=== PATIENT | male | born 1960 | race Caucasian/White ===

== ENCOUNTER 2016-06-03 16:03 | Inpatient (IN) | payer MEDICAID ==
[~2016-06-03] VITALS: Ht 175.3 cm; Wt 98.2 kg
[~2016-06-03 16:03] MED LIST: BECL8.7A6 IH; DIVA500T52 PO; DSS100 PO; IPRA4AER IH; LORA10TA7 PO; MOME17N NASAL; MULT1CAP32 PO; PHEN100C9 PO; PRAV40 PO; TAMS0.4C32 PO; TRAZ-144 PO
[2016-06-03] MEDS ORDERED: DIVA500T35 PO (16:31)
[2016-06-03] MEDS ORDERED: OLAN10TA3 PO (16:33)
[2016-06-03] MEDS ORDERED: FURO20 PO (16:37)
[2016-06-03] MEDS ORDERED: TOPI25 PO (16:39)
[2016-06-03] MEDS ORDERED: ZOLPIDEM TARTRATE 10 MG TABLET PO PRN (17:00)
[2016-06-03 17:01] VITALS: BP 109/82
[2016-06-03] MEDS ORDERED: MOME13HF2 IH (17:15)
[2016-06-03] MEDS ORDERED: DiphenhydrAMINE HCL 50 MG/ML VIAL IM ONE (18:00)
[2016-06-03] MEDS ORDERED: LORazepam 2 MG/ML VIAL IM ONE (18:00)
[2016-06-03] MEDS ORDERED: HALOPERIDOL LACTATE 5 MG/ML VIAL IM ONE (18:00)
[2016-06-03 18:02] VITALS: BP 141/99
[2016-06-03 18:35] VITALS: BP 119/75
[2016-06-03] MEDS: DIVALPROEX SODIUM 500 MG DR TABLET PO SCH (18:50)
[2016-06-03] MEDS ORDERED: PNEUMOCOCCAL VACCINE POLYVALENT 0.5 ML VIAL [PPSV23] IM ONE (19:30)
[2016-06-03] MEDS: TraZODone HCL 50 MG TABLET PO SCH (20:43)
[2016-06-03] MEDS: TAMSULOSIN HCL 0.4 MG CAPSULE PO SCH (20:43)
[2016-06-03] MEDS: MOMETASONE FUROATE 50 MCG/SPRAY 17 GM NASAL SPRAY NASAL SCH (20:43)
[2016-06-03] MEDS: OLANZapine 10 MG TABLET PO SCH (20:43)
[2016-06-04] MEDS: LORazepam 2 MG TABLET PO PRN ×2 (06:02→15:12)
[2016-06-04] MEDS: HALOPERIDOL 5 MG TABLET PO PRN ×2 (06:02→15:12)
[2016-06-04 06:10] VITALS: BP 145/90
[2016-06-04 08:32] LABS: BASOPHILS % (AUTO) 0.3 % (0.0-2.0); EOSINOPHILS % (AUTO) 1.8 % (1.0-6.0); HEMATOCRIT 42.8 % (41-53); HEMOGLOBIN 14.1 g/dL (13.5-17.5); LYMPHOCYTES # (AUTO) 1.3 K/uL (1.0-4.8); LYMPHOCYTES % (AUTO) 18.8 % (22.0-44.0); MEAN CORPUSCULAR HEMOGLOBIN 30.7 pg (26.0-34.0); MEAN CORPUSCULAR VOLUME 93 fL (80-100); MONOCYTES # (AUTO) 0.5 K/uL (0.1-1.0); MONOCYTES % (AUTO) 7.4 % (2.0-9.0); NEUTROPHILS % (AUTO) 71.7 % (40.0-70.0); PLATELET COUNT (AUTO) 219 K/uL (150-450); RED BLOOD CELL COUNT(AUTO) 4.61 MIL/uL (4.50-5.90); RED CELL DISTRIBUTION WIDTH 14.5 % (11.5-14.5)
[2016-06-04 08:39] VITALS: BP 119/79
[2016-06-04 08:57] LABS: ALANINE AMINOTRANSFERASE 24 U/L (12-78); ALBUMIN 3.6 g/dL (3.4-5.0); ANION GAP 9 mmol/L (8-16); ASPARTATE AMINOTRANSFERASE 8 U/L (15-37); BILIRUBIN,TOTAL 0.3 mg/dL (0.1-1.0); CALCIUM, TOTAL 8.5 mg/dL (8.8-10.5); CARBON DIOXIDE 27 mmol/L (22-29); CHLORIDE 109 mmol/L (98-107); CHOL/HDL RATIO 3.3 (4.2-7.3); CREATININE 0.68 mg/dL (0.60-1.30); GLOMERULAR FILTR. RATE CALC > 60 mL/min (>60); POTASSIUM 4.1 mmol/L (3.5-5.1); SODIUM SERUM 145 mmol/L (136-145); THYROID STIMULATING HORMONE 1.77 uIU/mL (0.36-3.74); TOTAL PROTEIN, SERUM 6.8 g/dL (6.4-8.2); UREA NITROGEN, BLOOD 12 mg/dL (7-18); VALPROIC ACID 5 mcg/mL (50-100)
[2016-06-04] MEDS ORDERED: BECLOMETHASONE DIPR 40 MCG/PUFF 8.7 GM INHALER IH SCH (09:00)
[2016-06-04] MEDS: ALBUTEROL SULFATE HFA 90 MCG/PUFF 8 GM INHALER IH SCH ×2 (09:01→17:25)
[2016-06-04] MEDS: LORATADINE 10 MG TABLET PO SCH (09:02)
[2016-06-04] MEDS: FUROSEMIDE 20 MG TABLET PO SCH (09:02)
[2016-06-04] MEDS: PRAVASTATIN SODIUM 40 MG TABLET PO SCH (09:02)
[2016-06-04] MEDS: DIVALPROEX SODIUM 500 MG DR TABLET PO SCH ×2 (09:02→12:36)
[2016-06-04] MEDS: MULTIVITAMINS WITH MINERALS, THERAPEUTIC TABLET PO SCH (09:02)
[2016-06-04] MEDS: DOCUSATE SODIUM 100 MG CAPSULE PO SCH (09:02)
[2016-06-04] MEDS: PHENYTOIN SODIUM 100 MG ER CAPSULE PO SCH ×3 (09:02→17:25)
[2016-06-04] MEDS ORDERED: DULERA IH SCH ×2 (14:15→21:30)
[2016-06-04] MEDS ORDERED: HALOPERIDOL LACTATE 5 MG/ML VIAL ONE (14:39)
[2016-06-04] MEDS ORDERED: LORazepam 2 MG/ML VIAL ONE (14:39)
[2016-06-04] MEDS ORDERED: DiphenhydrAMINE HCL 50 MG/ML VIAL ONE (14:39)
[2016-06-04 16:49] VITALS: BP 108/68
[2016-06-04] MEDS: TOPIRAMATE 25 MG TABLET PO SCH (17:25)
[2016-06-04] MEDS: DULERA IH SCH (20:05)
[2016-06-04] MEDS: TraZODone HCL 50 MG TABLET PO SCH (20:05)
[2016-06-04] MEDS: DIVALPROEX SODIUM 500 MG ER TABLET PO SCH (20:06)
[2016-06-04] MEDS: OLANZapine 10 MG TABLET PO SCH (20:06)
[2016-06-04] MEDS: TAMSULOSIN HCL 0.4 MG CAPSULE PO SCH (20:07)
[2016-06-04] MEDS: MOMETASONE FUROATE 50 MCG/SPRAY 17 GM NASAL SPRAY NASAL SCH (21:00)
[2016-06-05] MEDS: FUROSEMIDE 20 MG TABLET PO SCH (08:05)
[2016-06-05] MEDS: PHENYTOIN SODIUM 100 MG ER CAPSULE PO SCH ×3 (08:05→16:19)
[2016-06-05] MEDS: DIVALPROEX SODIUM 500 MG DR TABLET PO SCH ×2 (08:05→16:19)
[2016-06-05] MEDS: TOPIRAMATE 25 MG TABLET PO SCH ×2 (08:05→16:19)
[2016-06-05] MEDS: LORATADINE 10 MG TABLET PO SCH (08:05)
[2016-06-05] MEDS: PRAVASTATIN SODIUM 40 MG TABLET PO SCH (08:05)
[2016-06-05] MEDS: MULTIVITAMINS WITH MINERALS, THERAPEUTIC TABLET PO SCH (08:05)
[2016-06-05] MEDS: DOCUSATE SODIUM 100 MG CAPSULE PO SCH (08:05)
[2016-06-05] MEDS: DULERA IH SCH ×2 (08:06→20:23)
[2016-06-05] MEDS: ALBUTEROL SULFATE HFA 90 MCG/PUFF 8 GM INHALER IH SCH ×2 (08:10→16:20)
[2016-06-05 08:28] VITALS: BP 111/58
[2016-06-05] MEDS: HALOPERIDOL 5 MG TABLET PO PRN (09:54)
[2016-06-05] MEDS: LORazepam 2 MG TABLET PO PRN (09:54)
[2016-06-05 18:18] VITALS: BP 118/24
[2016-06-05] MEDS: MOMETASONE FUROATE 50 MCG/SPRAY 17 GM NASAL SPRAY NASAL SCH (20:23)
[2016-06-05] MEDS: TAMSULOSIN HCL 0.4 MG CAPSULE PO SCH (20:23)
[2016-06-05] MEDS: TraZODone HCL 50 MG TABLET PO SCH (20:23)
[2016-06-05] MEDS: OLANZapine 10 MG TABLET PO SCH (20:23)
[2016-06-05] MEDS: DIVALPROEX SODIUM 500 MG ER TABLET PO SCH (20:23)
[2016-06-06 08:03] VITALS: BP 103/71
[2016-06-06] MEDS: ALBUTEROL SULFATE HFA 90 MCG/PUFF 8 GM INHALER IH SCH (08:29)
[2016-06-06] MEDS: PRAVASTATIN SODIUM 40 MG TABLET PO SCH (08:29)
[2016-06-06] MEDS: FUROSEMIDE 20 MG TABLET PO SCH (08:29)
[2016-06-06] MEDS: DIVALPROEX SODIUM 500 MG DR TABLET PO SCH (08:29)
[2016-06-06] MEDS: DULERA IH SCH (08:29)
[2016-06-06] MEDS: LORATADINE 10 MG TABLET PO SCH (08:30)
[2016-06-06] MEDS: PHENYTOIN SODIUM 100 MG ER CAPSULE PO SCH ×2 (08:30→12:04)
[2016-06-06] MEDS: MULTIVITAMINS WITH MINERALS, THERAPEUTIC TABLET PO SCH (08:30)
[2016-06-06] MEDS: DOCUSATE SODIUM 100 MG CAPSULE PO SCH (08:30)
[2016-06-06] MEDS: HALOPERIDOL 5 MG TABLET PO PRN (08:31)
[2016-06-06] MEDS: TOPIRAMATE 25 MG TABLET PO SCH (08:31)
[2016-06-06] MEDS: LORazepam 2 MG TABLET PO PRN (08:31)
[2016-06-06] MEDS ORDERED: ALBU8HFA IH (11:11)
== END 2016-06-06 15:15 | disposition home or self-care (01) | DRG 750 ==
LOC: EDSTATUS 16:51 → B3A 17:38 → 3EC 06-04 10:37
DX: F25.0 Schizoaffective disorder, bipolar type (principal); J44.9 Chronic obstructive pulmonary disease, unspecified; I10 Essential (primary) hypertension; G40.909 Epilepsy, unspecified, not intractable, without status epilepticus; E78.5 Hyperlipidemia, unspecified; G47.00 Insomnia, unspecified; J31.0 Chronic rhinitis; M19.90 Unspecified osteoarthritis, unspecified site; N40.0 Benign prostatic hyperplasia without lower urinary tract symptoms; R45.850 Homicidal ideations; Z91.5 Personal history of self-harm; Z98.2 Presence of cerebrospinal fluid drainage device; Z88.0 Allergy status to penicillin; Z88.6 Allergy status to analgesic agent; Z79.51 Long term (current) use of inhaled steroids; Z79.899 Other long term (current) drug therapy; Z98.890 Other specified postprocedural states; Z28.21 Immunization not carried out because of patient refusal; Z87.891 Personal history of nicotine dependence
CPT/HCPCS: 84436; 84439; 84443; J1200; J1630; J2060; J3535

== ENCOUNTER 2016-08-10 14:28 | Inpatient (IN) | payer MEDICAID, OTHER ==
[~2016-08-10] VITALS: Ht 162.6 cm; Wt 85.8 kg
[~2016-08-10 14:28] MED LIST changes: +ALBU8HFA IH; +DIPH25 PO; +DIVA500T35 PO; +FURO20 PO; +MOME13HF2 IH; +OLAN10TA3 PO; +SERT50TA12 PO; +TOPI25 PO
[2016-08-10 14:48] LABS: BASOPHILS # (AUTO) 0.04 K/uL (0.00-0.20); BASOPHILS % (AUTO) 0.4 % (0.0-2.0); EOSINOPHILS # (AUTO) 0.22 K/uL (0.00-0.70); EOSINOPHILS % (AUTO) 2.14 % (1.0-6.0); HEMOGLOBIN 14.6 g/dL (13.5-17.5); LYMPHOCYTES # (AUTO) 1.6 K/uL (1.0-4.8); LYMPHOCYTES % (AUTO) 15.4 % (22.0-44.0); MEAN CORPUSCULAR HGB CONC 33.9 G/dL (31.0-37.0); MEAN CORPUSCULAR VOLUME 94 fL (80-100); MONOCYTES # (AUTO) 0.9 K/uL (0.1-1.0); MONOCYTES % (AUTO) 8.5 % (2.0-9.0); NEUTROPHILS # (AUTO) 7.6 K/uL (1.8-7.7); NEUTROPHILS % (AUTO) 73.6 % (40.0-70.0); PLATELET COUNT (AUTO) 319 K/uL (150-450); RED BLOOD CELL COUNT(AUTO) 4.57 MIL/uL (4.50-5.90); RED CELL DISTRIBUTION WIDTH 13.4 % (11.5-14.5); WHITE BLOOD COUNT (AUTO) 10.4 K/uL (4.5-11.0)
[2016-08-10 14:53] LABS: ANION GAP 11 mmol/L (8-16); CALCIUM, TOTAL 8.7 mg/dL (8.8-10.5); CARBON DIOXIDE 26 mmol/L (22-29); CHLORIDE 103 mmol/L (98-107); CREATININE 0.73 mg/dL (0.60-1.30); GLOMERULAR FILTR. RATE CALC > 60 mL/min (>60); POTASSIUM 3.4 mmol/L (3.5-5.1); SODIUM SERUM 140 mmol/L (136-145); UREA NITROGEN, BLOOD 7 mg/dL (7-18)
[2016-08-10 14:59] LABS: ALANINE AMINOTRANSFERASE 22 U/L (12-78); ALBUMIN 3.9 g/dL (3.4-5.0); ASPARTATE AMINOTRANSFERASE 7 U/L (15-37); BILIRUBIN,TOTAL 0.2 mg/dL (0.1-1.0); TOTAL PROTEIN, SERUM 7.5 g/dL (6.4-8.2); VALPROIC ACID 45 mcg/mL (50-100)
[2016-08-10] MEDS ORDERED: LORazepam 2 MG TABLET PO ONE (15:00)
[2016-08-10] MEDS ORDERED: HALOPERIDOL 5 MG TABLET PO PRN (15:30)
[2016-08-10] MEDS ORDERED: PHENYTOIN SODIUM 100 MG ER CAPSULE PO ONE (15:45)
[2016-08-10] MEDS ORDERED: POTASSIUM CHLORIDE 20 MEQ ER TABLET PO ONE (15:45)
[2016-08-10] MEDS ORDERED: DIVALPROEX SODIUM 500 MG ER TABLET PO ONE (15:45)
[2016-08-10 17:34] VITALS: BP 109/69
[2016-08-10] MEDS ORDERED: PNEUMOCOCCAL VACCINE POLYVALENT 0.5 ML VIAL [PPSV23] IM ONE (18:15)
[2016-08-10] MEDS: OLANZapine 7.5 MG TABLET PO SCH (20:40)
[2016-08-10] MEDS: TraZODone HCL 100 MG TABLET PO SCH (20:40)
[2016-08-10] MEDS: TAMSULOSIN HCL 0.4 MG CAPSULE PO SCH (20:40)
[2016-08-11 08:20] VITALS: BP 104/77
[2016-08-11] MEDS: FUROSEMIDE 20 MG TABLET PO SCH (08:22)
[2016-08-11] MEDS: PHENYTOIN SODIUM 100 MG ER CAPSULE PO SCH ×3 (08:22→17:26)
[2016-08-11] MEDS: DIVALPROEX SODIUM 500 MG DR TABLET PO SCH ×2 (08:22→17:26)
[2016-08-11] MEDS: MULTIVITAMINS, THERAPEUTIC TABLET PO SCH (08:22)
[2016-08-11] MEDS: PRAVASTATIN SODIUM 40 MG TABLET PO SCH (08:22)
[2016-08-11] MEDS: TOPIRAMATE 25 MG TABLET PO SCH ×2 (08:24→17:26)
[2016-08-11] MEDS: ALBUTEROL SULFATE HFA 90 MCG/PUFF 8 GM INHALER IH PRN ×2 (12:06→20:22)
[2016-08-11] MEDS: TAMSULOSIN HCL 0.4 MG CAPSULE PO SCH (20:16)
[2016-08-11] MEDS: OLANZapine 7.5 MG TABLET PO SCH (20:16)
[2016-08-11] MEDS: TraZODone HCL 100 MG TABLET PO SCH (20:16)
[2016-08-12 07:09] LABS: BASOPHILS % (AUTO) 0.3 % (0.0-2.0); EOSINOPHILS % (AUTO) 2.7 % (1.0-6.0); HEMATOCRIT 41.3 % (41-53); HEMOGLOBIN 14.3 g/dL (13.5-17.5); LYMPHOCYTES # (AUTO) 1.4 K/uL (1.0-4.8); LYMPHOCYTES % (AUTO) 25.1 % (22.0-44.0); MEAN CORPUSCULAR HEMOGLOBIN 32.4 pg (26.0-34.0); MEAN CORPUSCULAR HGB CONC 34.7 G/dL (31.0-37.0); MEAN CORPUSCULAR VOLUME 93 fL (80-100); MONOCYTES # (AUTO) 0.6 K/uL (0.1-1.0); MONOCYTES % (AUTO) 10.1 % (2.0-9.0); NEUTROPHILS # (AUTO) 3.4 K/uL (1.8-7.7); NEUTROPHILS % (AUTO) 61.8 % (40.0-70.0); PLATELET COUNT (AUTO) 291 K/uL (150-450); RED BLOOD CELL COUNT(AUTO) 4.42 MIL/uL (4.50-5.90); RED CELL DISTRIBUTION WIDTH 13.7 % (11.5-14.5); WHITE BLOOD COUNT (AUTO) 5.6 K/uL (4.5-11.0)
[2016-08-12 07:35] LABS: ALANINE AMINOTRANSFERASE 19 U/L (12-78); ALBUMIN 3.2 g/dL (3.4-5.0); ANION GAP 9 mmol/L (8-16); ASPARTATE AMINOTRANSFERASE 7 U/L (15-37); BILIRUBIN,TOTAL 0.1 mg/dL (0.1-1.0); CALCIUM, TOTAL 8.4 mg/dL (8.8-10.5); CARBON DIOXIDE 26 mmol/L (22-29); CHLORIDE 107 mmol/L (98-107); CREATININE 0.63 mg/dL (0.60-1.30); GLOMERULAR FILTR. RATE CALC > 60 mL/min (>60); POTASSIUM 3.9 mmol/L (3.5-5.1); SODIUM SERUM 142 mmol/L (136-145); THYROID STIMULATING HORMONE 0.73 uIU/mL (0.36-3.74); TOTAL PROTEIN, SERUM 6.5 g/dL (6.4-8.2); UREA NITROGEN, BLOOD 11 mg/dL (7-18); VALPROIC ACID 36 mcg/mL (50-100)
[2016-08-12 08:00] VITALS: BP 133/71
[2016-08-12] MEDS: PHENYTOIN SODIUM 100 MG ER CAPSULE PO SCH ×3 (09:04→18:15)
[2016-08-12] MEDS: FUROSEMIDE 20 MG TABLET PO SCH (09:04)
[2016-08-12] MEDS: DIVALPROEX SODIUM 500 MG DR TABLET PO SCH ×2 (09:04→18:15)
[2016-08-12] MEDS: MULTIVITAMINS, THERAPEUTIC TABLET PO SCH (09:04)
[2016-08-12] MEDS: PRAVASTATIN SODIUM 40 MG TABLET PO SCH (09:05)
[2016-08-12] MEDS: TOPIRAMATE 25 MG TABLET PO SCH ×2 (09:06→18:15)
[2016-08-12] MEDS: ALBUTEROL SULFATE HFA 90 MCG/PUFF 8 GM INHALER IH PRN (09:09)
[2016-08-12] MEDS: FLUTICASONE/VILANTEROL 100-25 MCG/INH INHALER [14] IH SCH (14:34)
[2016-08-12] MEDS: OLANZapine 7.5 MG TABLET PO SCH (21:11)
[2016-08-12] MEDS: TraZODone HCL 100 MG TABLET PO SCH (21:11)
[2016-08-12] MEDS: TAMSULOSIN HCL 0.4 MG CAPSULE PO SCH (21:11)
[2016-08-12] MEDS: ZOLPIDEM TARTRATE 10 MG TABLET PO PRN (22:28)
[2016-08-13 08:00] VITALS: BP 103/62
[2016-08-13] MEDS: PHENYTOIN SODIUM 100 MG ER CAPSULE PO SCH ×3 (09:12→16:49)
[2016-08-13] MEDS: MULTIVITAMINS, THERAPEUTIC TABLET PO SCH (09:12)
[2016-08-13] MEDS: FUROSEMIDE 20 MG TABLET PO SCH (09:12)
[2016-08-13] MEDS: DIVALPROEX SODIUM 500 MG DR TABLET PO SCH ×2 (09:12→16:49)
[2016-08-13] MEDS: PRAVASTATIN SODIUM 40 MG TABLET PO SCH (09:12)
[2016-08-13] MEDS: TOPIRAMATE 25 MG TABLET PO SCH ×2 (09:12→16:49)
[2016-08-13] MEDS: FLUTICASONE/VILANTEROL 100-25 MCG/INH INHALER [14] IH SCH (09:12)
[2016-08-13] MEDS: TraZODone HCL 100 MG TABLET PO SCH (20:21)
[2016-08-13] MEDS: OLANZapine 7.5 MG TABLET PO SCH (20:21)
[2016-08-13] MEDS: TAMSULOSIN HCL 0.4 MG CAPSULE PO SCH (20:22)
[2016-08-13] MEDS: ZOLPIDEM TARTRATE 10 MG TABLET PO PRN (20:58)
[2016-08-14 08:28] VITALS: BP 128/95
[2016-08-14] MEDS: FUROSEMIDE 20 MG TABLET PO SCH (08:34)
[2016-08-14] MEDS: PHENYTOIN SODIUM 100 MG ER CAPSULE PO SCH ×3 (08:34→18:01)
[2016-08-14] MEDS: MULTIVITAMINS, THERAPEUTIC TABLET PO SCH (08:34)
[2016-08-14] MEDS: TOPIRAMATE 25 MG TABLET PO SCH ×2 (08:35→18:01)
[2016-08-14] MEDS: DIVALPROEX SODIUM 500 MG DR TABLET PO SCH ×2 (08:35→18:00)
[2016-08-14] MEDS: PRAVASTATIN SODIUM 40 MG TABLET PO SCH (08:36)
[2016-08-14 17:48] VITALS: BP 113/71
[2016-08-14] MEDS: OLANZapine 7.5 MG TABLET PO SCH (22:09)
[2016-08-14] MEDS: TAMSULOSIN HCL 0.4 MG CAPSULE PO SCH (22:09)
[2016-08-14] MEDS: TraZODone HCL 100 MG TABLET PO SCH (22:09)
[2016-08-15 08:00] VITALS: BP 124/85
[2016-08-15] MEDS: DIVALPROEX SODIUM 500 MG DR TABLET PO SCH ×2 (08:02→16:38)
[2016-08-15] MEDS: FUROSEMIDE 20 MG TABLET PO SCH (08:03)
[2016-08-15] MEDS: PRAVASTATIN SODIUM 40 MG TABLET PO SCH (08:03)
[2016-08-15] MEDS: PHENYTOIN SODIUM 100 MG ER CAPSULE PO SCH ×3 (08:03→16:38)
[2016-08-15] MEDS: TOPIRAMATE 25 MG TABLET PO SCH ×2 (08:03→16:38)
[2016-08-15] MEDS: MULTIVITAMINS, THERAPEUTIC TABLET PO SCH (08:03)
[2016-08-15] MEDS: FLUTICASONE/VILANTEROL 100-25 MCG/INH INHALER [14] IH SCH (08:07)
[2016-08-15] MEDS: ALBUTEROL SULFATE HFA 90 MCG/PUFF 8 GM INHALER IH PRN (08:08)
[2016-08-15] MEDS: LORazepam 2 MG TABLET PO PRN (14:55)
[2016-08-15 16:41] VITALS: BP 129/88
[2016-08-15] MEDS: TraZODone HCL 100 MG TABLET PO SCH (21:54)
[2016-08-15] MEDS: OLANZapine 7.5 MG TABLET PO SCH (21:54)
[2016-08-15] MEDS: TAMSULOSIN HCL 0.4 MG CAPSULE PO SCH (21:54)
[2016-08-16 08:01] VITALS: BP 104/56
[2016-08-16] MEDS: FLUTICASONE/VILANTEROL 100-25 MCG/INH INHALER [14] IH SCH (09:00)
[2016-08-16] MEDS: DIVALPROEX SODIUM 500 MG DR TABLET PO SCH ×2 (09:14→17:54)
[2016-08-16] MEDS: MULTIVITAMINS, THERAPEUTIC TABLET PO SCH (09:15)
[2016-08-16] MEDS: PRAVASTATIN SODIUM 40 MG TABLET PO SCH (09:15)
[2016-08-16] MEDS: PHENYTOIN SODIUM 100 MG ER CAPSULE PO SCH ×3 (09:15→17:54)
[2016-08-16] MEDS: FUROSEMIDE 20 MG TABLET PO SCH (09:15)
[2016-08-16] MEDS: TOPIRAMATE 25 MG TABLET PO SCH ×2 (09:15→17:54)
[2016-08-16] MEDS: ALBUTEROL SULFATE HFA 90 MCG/PUFF 8 GM INHALER IH PRN (10:10)
[2016-08-16] MEDS: LORazepam 2 MG TABLET PO PRN (18:35)
[2016-08-16 19:11] VITALS: BP 114/68
[2016-08-16] MEDS ORDERED: IBUPROFEN 600 MG TABLET PO PRN (19:45)
[2016-08-16] MEDS ORDERED: ACETAMINOPHEN 325 MG TABLET PO PRN (19:45)
[2016-08-16] MEDS ORDERED: BENZOCAINE/MENTHOL LOZENGE MM PRN (19:45)
[2016-08-16] MEDS ORDERED: PETROLATUM,WHITE 71 GM JELLY TP PRN (19:45)
[2016-08-16] MEDS ORDERED: ONDANSETRON HCL 4 MG TABLET PO PRN (19:45)
[2016-08-16] MEDS ORDERED: MAGNESIUM HYDROXIDE SUSPENSION 30 ML UDCUP PO PRN (19:45)
[2016-08-16] MEDS ORDERED: LOPERAMIDE HCL 2 MG CAPSULE PO PRN (19:45)
[2016-08-16] MEDS ORDERED: BACITRACIN 28.4 GM OINTMENT TP PRN (19:45)
[2016-08-16] MEDS ORDERED: MAG HYDROX/AL HYDROX/SIMETH ES 30 ML SUSPENSION UDCUP PO PRN (19:45)
[2016-08-16] MEDS ORDERED: CloNIDine HCL 0.1 MG TABLET PO PRN (19:45)
[2016-08-16] MEDS ORDERED: BENZOCAINE/MENTHOL LOZENGE [8 LOZENGES/PACKET] MM PRN (19:54)
[2016-08-16] MEDS: DICLOFENAC SODIUM 1% 100 GM GEL [2GM] TP SCH (20:49)
[2016-08-16] MEDS: TraZODone HCL 100 MG TABLET PO SCH (20:49)
[2016-08-16] MEDS: TAMSULOSIN HCL 0.4 MG CAPSULE PO SCH (20:50)
[2016-08-16] MEDS: OLANZapine 7.5 MG TABLET PO SCH (20:50)
[2016-08-17 08:12] VITALS: BP 120/67
[2016-08-17] MEDS: FLUTICASONE/VILANTEROL 100-25 MCG/INH INHALER [14] IH SCH ×2 (09:00→10:18)
[2016-08-17] MEDS: FUROSEMIDE 20 MG TABLET PO SCH (10:17)
[2016-08-17] MEDS: ASPIRIN 81 MG EC TABLET PO SCH (10:17)
[2016-08-17] MEDS: DIVALPROEX SODIUM 500 MG DR TABLET PO SCH ×2 (10:17→15:52)
[2016-08-17] MEDS: MULTIVITAMINS, THERAPEUTIC TABLET PO SCH (10:17)
[2016-08-17] MEDS: PRAVASTATIN SODIUM 40 MG TABLET PO SCH (10:17)
[2016-08-17] MEDS: DOCUSATE SODIUM 100 MG CAPSULE PO SCH (10:17)
[2016-08-17] MEDS: OMEPRAZOLE 20 MG CAPSULE PO SCH (10:18)
[2016-08-17] MEDS: PHENYTOIN SODIUM 100 MG ER CAPSULE PO SCH ×3 (10:24→15:53)
[2016-08-17] MEDS: TOPIRAMATE 25 MG TABLET PO SCH ×2 (10:25→15:52)
[2016-08-17] MEDS: DICLOFENAC SODIUM 1% 100 GM GEL [2GM] TP SCH ×2 (10:27→16:04)
[2016-08-17] MEDS: TraZODone HCL 100 MG TABLET PO SCH (20:13)
[2016-08-17] MEDS: OLANZapine 7.5 MG TABLET PO SCH (20:13)
[2016-08-17] MEDS: TAMSULOSIN HCL 0.4 MG CAPSULE PO SCH (20:13)
[2016-08-17 21:45] VITALS: BP 135/79
[2016-08-17] MEDS: ZOLPIDEM TARTRATE 10 MG TABLET PO PRN (21:57)
[2016-08-18] MEDS: PRAVASTATIN SODIUM 40 MG TABLET PO SCH (08:27)
[2016-08-18] MEDS: DICLOFENAC SODIUM 1% 100 GM GEL [2GM] TP SCH ×2 (08:27→16:33)
[2016-08-18] MEDS: FLUTICASONE/VILANTEROL 100-25 MCG/INH INHALER [14] IH SCH (08:27)
[2016-08-18 08:30] VITALS: BP 117/63
[2016-08-18] MEDS: FUROSEMIDE 20 MG TABLET PO SCH (08:30)
[2016-08-18] MEDS: ASPIRIN 81 MG EC TABLET PO SCH (08:30)
[2016-08-18] MEDS: MULTIVITAMINS, THERAPEUTIC TABLET PO SCH (08:30)
[2016-08-18] MEDS: TOPIRAMATE 25 MG TABLET PO SCH ×2 (08:30→16:35)
[2016-08-18] MEDS: OMEPRAZOLE 20 MG CAPSULE PO SCH (08:30)
[2016-08-18] MEDS: DIVALPROEX SODIUM 500 MG DR TABLET PO SCH ×2 (08:30→16:35)
[2016-08-18] MEDS: DOCUSATE SODIUM 100 MG CAPSULE PO SCH (08:30)
[2016-08-18] MEDS: PHENYTOIN SODIUM 100 MG ER CAPSULE PO SCH ×3 (08:31→16:35)
[2016-08-18] MEDS ORDERED: TRAZ-147 PO (14:31)
[2016-08-18] MEDS ORDERED: ASPI-1093 PO (14:32)
[2016-08-18] MEDS ORDERED: DSS100 PO (14:34)
[2016-08-18] MEDS ORDERED: DICL2100G TP (14:34)
[2016-08-18] MEDS ORDERED: FLUT1AER IH (14:36)
[2016-08-18] MEDS ORDERED: OMEP20 PO (14:38)
[2016-08-18 16:00] VITALS: BP 122/74
== END 2016-08-18 19:00 | disposition home or self-care (01) | DRG 750 ==
LOC: EMS 14:32 → 3EC 16:15
PROVIDERS: ADMIT Psychiatry & Neurology Psychiatry; ATTEND Psychiatry & Neurology Psychiatry
DX: F25.0 Schizoaffective disorder, bipolar type (principal); I67.1 Cerebral aneurysm, nonruptured; F15.20 Other stimulant dependence, uncomplicated; J44.9 Chronic obstructive pulmonary disease, unspecified; R45.850 Homicidal ideations; G40.909 Epilepsy, unspecified, not intractable, without status epilepticus; I10 Essential (primary) hypertension; E78.5 Hyperlipidemia, unspecified; E87.6 Hypokalemia; F17.200 Nicotine dependence, unspecified, uncomplicated; F41.9 Anxiety disorder, unspecified; G47.00 Insomnia, unspecified; G89.29 Other chronic pain; M19.90 Unspecified osteoarthritis, unspecified site; N40.0 Benign prostatic hyperplasia without lower urinary tract symptoms; Z98.2 Presence of cerebrospinal fluid drainage device; B07.0 Plantar wart; R26.9 Unspecified abnormalities of gait and mobility; R45.84 Anhedonia; R45.87 Impulsiveness; Z88.0 Allergy status to penicillin; Z88.8 Allergy status to other drugs, medicaments and biological substances; Z84.89 Family history of other specified conditions; Z63.9 Problem related to primary support group, unspecified; Z28.21 Immunization not carried out because of patient refusal; F19.10 Other psychoactive substance abuse, uncomplicated; Z71.51 Drug abuse counseling and surveillance of drug abuser; M25.512 Pain in left shoulder; Z56.0 Unemployment, unspecified
CPT/HCPCS: 82306; 84436; 84439; 84443; 93005; 99285; G0480; J3535

== ENCOUNTER 2018-02-04 22:57 | Emergency (ER) | payer MEDICAID, OTHER ==
[~2018-02-04] VITALS: Ht 175.3 cm; Wt 70.5 kg
[~2018-02-04 22:57] MED LIST changes: -ALBU8HFA IH; +ASPI-1182 PO; -BECL8.7A6 IH; +DICL2100G TP; -DIPH25 PO; +DIVA-78 PO; -DIVA500T35 PO; -DIVA500T52 PO; +FLUT1AER IH; -IPRA4AER IH; -LORA10TA7 PO; -MOME13HF2 IH; -MOME17N NASAL; +OMEP20 PO; -PRAV40 PO; +PRAV40TA4 PO; -SERT50TA12 PO; -TRAZ-144 PO; +TRAZ-220 PO
[2018-02-04] MEDS ORDERED: SIME80 PO (23:15)
[2018-02-04] MEDS ORDERED: DOCU250C91 PO (23:15)
[2018-02-04] MEDS ORDERED: PHEN100C23 PO (23:15)
[2018-02-04] MEDS ORDERED: SERT100T12 PO (23:15)
[2018-02-04] MEDS ORDERED: PRAV40TA4 PO (23:15)
[2018-02-04] MEDS ORDERED: OLAN10TA3 PO (23:15)
[2018-02-04] MEDS ORDERED: MOME13HF2 IH (23:15)
[2018-02-04] MEDS ORDERED: DIVA500T52 PO ×2 (23:17)
[2018-02-04] MEDS ORDERED: FURO40 PO (23:17)
[2018-02-05] MEDS ORDERED: PHENYTOIN SODIUM 100 MG ER CAPSULE PO ONE (00:45)
[2018-02-05 05:35] VITALS: BP 136/79
== END 2018-02-05 05:37 | disposition home or self-care (01) ==
LOC: EMS 22:59
DX: G40.909 Epilepsy, unspecified, not intractable, without status epilepticus (principal); F25.9 Schizoaffective disorder, unspecified; J44.9 Chronic obstructive pulmonary disease, unspecified; E78.00 Pure hypercholesterolemia, unspecified; F32.9 Major depressive disorder, single episode, unspecified; Z87.891 Personal history of nicotine dependence; Z88.0 Allergy status to penicillin; Z88.6 Allergy status to analgesic agent

== ENCOUNTER 2018-03-14 06:09 | Emergency (ER) | payer OTHER ==
[~2018-03-14] VITALS: Ht 175.3 cm; Wt 75.0 kg
[~2018-03-14 06:09] MED LIST changes: -ASPI-1182 PO; -DICL2100G TP; -DIVA-78 PO; +DIVA500T52 PO; +DOCU250C91 PO; -DSS100 PO; -FLUT1AER IH; -FURO20 PO; +FURO40 PO; +MOME13HF2 IH; -OMEP20 PO; +PHEN100C23 PO; -PHEN100C9 PO; +SERT100T12 PO; +SIME80 PO
[2018-03-14] MEDS ORDERED: IBUPROFEN 600 MG TABLET PO ONE (07:30)
[2018-03-14] MEDS ORDERED: ALBUTEROL SULFATE HFA 90 MCG/PUFF 8 GM INHALER IH ONE (08:15)
[2018-03-14 08:48] VITALS: BP 146/81
== END 2018-03-14 08:50 | disposition home or self-care (01) ==
LOC: EMS 06:10
DX: J44.9 Chronic obstructive pulmonary disease, unspecified (principal); G89.29 Other chronic pain; M79.622 Pain in left upper arm; E78.00 Pure hypercholesterolemia, unspecified; I50.9 Heart failure, unspecified; F32.9 Major depressive disorder, single episode, unspecified; F15.90 Other stimulant use, unspecified, uncomplicated; Z79.899 Other long term (current) drug therapy; Z88.0 Allergy status to penicillin; Z88.6 Allergy status to analgesic agent
CPT/HCPCS: 93005; 94640; J3535

== ENCOUNTER 2018-03-18 13:35 | Emergency (ER) | payer OTHER ==
[~2018-03-18] VITALS: Ht 177.8 cm; Wt 75.0 kg
[~2018-03-18 13:35] MED LIST changes: -DOCU250C91 PO; -MULT1CAP32 PO; -SIME80 PO
[2018-03-18] MEDS ORDERED: ALBUTEROL SULFATE 5 MG/ML 20 ML NEB SOLN [BULK] NEB ONE (14:50)
[2018-03-18] MEDS ORDERED: OLAN7.5T2 PO (14:51)
[2018-03-18] MEDS ORDERED: IPRATROPIUM BROMIDE 0.5 MG/2.5 ML NEB SOLUTION NEB ONE (15:00)
[2018-03-18 15:50] LABS: BASOPHILS % (AUTO) 0.5 % (0.0-2.0); EOSINOPHILS % (AUTO) 4.5 % (1.0-6.0); HEMATOCRIT 41.9 % (41-53); HEMOGLOBIN 14.4 g/dL (13.5-17.5); LYMPHOCYTES # (AUTO) 2.5 K/uL (1.0-4.8); MEAN CORPUSCULAR HEMOGLOBIN 32.2 pg (26.0-34.0); MEAN CORPUSCULAR HGB CONC 34.4 G/dL (31.0-37.0); MEAN CORPUSCULAR VOLUME 94 fL (80-100); MONOCYTES # (AUTO) 0.8 K/uL (0.1-1.0); MONOCYTES % (AUTO) 9.6 % (2.0-9.0); NEUTROPHILS # (AUTO) 4.2 K/uL (1.8-7.7); NEUTROPHILS % (AUTO) 53.4 % (40.0-70.0); PLATELET COUNT (AUTO) 277 K/uL (150-450); RED BLOOD CELL COUNT(AUTO) 4.48 MIL/uL (4.50-5.90); RED CELL DISTRIBUTION WIDTH 13.7 % (11.5-14.5)
[2018-03-18 15:57] LABS: APPEARANCE,URINE CLEAR (CLEAR); BILIRUBIN,URINE NEGATIVE (NEGATIVE); GLUCOSE, URINE (UA) NEGATIVE (NEGATIVE); KETONES,URINE NEGATIVE (NEGATIVE); LEUKOCYTE ESTERASE ,URINE NEGATIVE (NEGATIVE); NITRATE,URINE NEGATIVE (NEGATIVE); OCCULT BLOOD,URINE NEGATIVE (NEGATIVE); PROTEIN,URINE NEGATIVE (NEGATIVE); UROBILINOGEN,URINE 0.2 mg/dL (<=1.0)
[2018-03-18 16:11] LABS: ANION GAP 5 mmol/L (8-16); CALCIUM, TOTAL 8.8 mg/dL (8.8-10.5); CARBON DIOXIDE 29 mmol/L (22-29); CHLORIDE 102 mmol/L (98-107); CREATININE 0.58 mg/dL (0.60-1.30); GLOMERULAR FILTR. RATE CALC > 60 mL/min (>60); GLUCOSE,RANDOM 89 mg/dL (70-110); POTASSIUM 4.1 mmol/L (3.5-5.1); SODIUM SERUM 136 mmol/L (136-145); UREA NITROGEN, BLOOD 21 mg/dL (7-18)
[2018-03-18 16:15] LABS: B-TYPE NATRIURETIC PEPTIDE 13 pg/mL (0-100)
[2018-03-18 16:25] LABS: PROTHROMBIN TIME 10.2 SEC (9.4-11.6)
[2018-03-18 16:37] LABS: ALANINE AMINOTRANSFERASE 38 U/L (12-78); ALBUMIN 3.5 g/dL (3.4-5.0); ALKALINE PHOSPHATASE 90 U/L (46-116); ASPARTATE AMINOTRANSFERASE 22 U/L (15-37); BILIRUBIN,TOTAL 0.2 mg/dL (0.1-1.0); CREATINE KINASE, TOTAL ONLY 101 U/L (39-308); TOTAL PROTEIN, SERUM 6.9 g/dL (6.4-8.2)
[2018-03-18] MEDS ORDERED: MethylPREDNISolone SOD SUCC 125 MG/2 ML VIAL IVP ONE (16:45)
[2018-03-18] MEDS ORDERED: LEVOFLOXACIN 500 MG/D5% WATER 100 ML IV ONE (16:45)
[2018-03-18 18:39] VITALS: BP 132/77
== END 2018-03-18 18:46 | disposition home or self-care (01) ==
LOC: EMS 13:36
DX: J44.9 Chronic obstructive pulmonary disease, unspecified (principal); E78.00 Pure hypercholesterolemia, unspecified; I50.9 Heart failure, unspecified; F32.9 Major depressive disorder, single episode, unspecified; F15.90 Other stimulant use, unspecified, uncomplicated; Z88.0 Allergy status to penicillin; Z88.6 Allergy status to analgesic agent; Z79.899 Other long term (current) drug therapy
CPT/HCPCS: 36415; 71045; 80053; 81003; 82550; 83880; 84484; 85025; 85610; 85730; 93005; 94060; 94644; 96365; 96375; 99285; J1956; J2930

== ENCOUNTER 2018-04-16 18:07 | Inpatient (IN) | payer MEDICAID, OTHER ==
[~2018-04-16] VITALS: Ht 167.6 cm; Wt 78.5 kg
[~2018-04-16 18:07] MED LIST changes: -OLAN10TA3 PO; +OLAN7.5T2 PO
[2018-04-16 18:55] LABS: BASOPHILS % (AUTO) 0.3 % (0.0-2.0); EOSINOPHILS % (AUTO) 4.1 % (1.0-6.0); HEMATOCRIT 41.5 % (41-53); HEMOGLOBIN 14.4 g/dL (13.5-17.5); LYMPHOCYTES # (AUTO) 2.6 K/uL (1.0-4.8); LYMPHOCYTES % (AUTO) 33.8 % (22.0-44.0); MEAN CORPUSCULAR HGB CONC 34.7 G/dL (31.0-37.0); MEAN CORPUSCULAR VOLUME 92 fL (80-100); MONOCYTES # (AUTO) 0.8 K/uL (0.1-1.0); MONOCYTES % (AUTO) 10.9 % (2.0-9.0); NEUTROPHILS # (AUTO) 3.9 K/uL (1.8-7.7); NEUTROPHILS % (AUTO) 50.9 % (40.0-70.0); PLATELET COUNT (AUTO) 233 K/uL (150-450); RED CELL DISTRIBUTION WIDTH 13.1 % (11.5-14.5)
[2018-04-16 19:07] LABS: ANION GAP 10 mmol/L (8-16); CALCIUM, TOTAL 8.9 mg/dL (8.8-10.5); CARBON DIOXIDE 26 mmol/L (22-29); CHLORIDE 100 mmol/L (98-107); GLOMERULAR FILTR. RATE CALC > 60 mL/min (>60); GLUCOSE,RANDOM 110 mg/dL (70-110); POTASSIUM 3.8 mmol/L (3.5-5.1); SODIUM SERUM 136 mmol/L (136-145); UREA NITROGEN, BLOOD 14 mg/dL (7-18)
[2018-04-16 19:14] LABS: ALANINE AMINOTRANSFERASE 21 U/L (12-78); ALBUMIN 3.4 g/dL (3.4-5.0); ALKALINE PHOSPHATASE 85 U/L (46-116); ASPARTATE AMINOTRANSFERASE 8 U/L (15-37); BILIRUBIN,TOTAL 0.2 mg/dL (0.1-1.0); TOTAL PROTEIN, SERUM 6.8 g/dL (6.4-8.2)
[2018-04-16 20:24] LABS: PHENYTOIN (DILANTIN) 8.9 mcg/mL (10.0-20.0); VALPROIC ACID 51 mcg/mL (50-100)
[2018-04-16] MEDS ORDERED: HALOPERIDOL 5 MG TABLET PO PRN (23:00)
[2018-04-16] MEDS ORDERED: ZOLPIDEM TARTRATE 10 MG TABLET PO PRN (23:00)
[2018-04-16] MEDS ORDERED: LORazepam 2 MG TABLET PO PRN (23:00)
[2018-04-16 23:26] LABS: HEMOGLOBIN A1C 5.3 % (4.5-6.2)
[2018-04-16 23:36] LABS: CHOL/HDL RATIO 4.1 (4.2-7.3); CHOLESTEROL 161 mg/dL (131-200); FREE T4 (FREE THYROXINE) 0.67 ng/dL (0.76-1.46); HDL CHOLESTEROL 39 mg/dL (40-60); LDL CHOL (CALC.) 83 mg/dL (0-130); THYROID STIMULATING HORMONE 1.37 uIU/mL (0.36-3.74); TRIGLYCERIDES 197 mg/dL (15-150)
[2018-04-17 00:20] VITALS: BP 130/73
[2018-04-17 00:22] LABS: AMPHET/METH SCREEN,URINE NEGATIVE (NEGATIVE); BARBITURATE SCREEN, URINE NEGATIVE (NEGATIVE); BENZODIAZEPINES SCREEN,URINE NEGATIVE (NEGATIVE); CANNABINOID SCREEN,URINE NEGATIVE (NEGATIVE); COCAINE SCREEN,URINE NEGATIVE (NEGATIVE); METHADONE SCREEN, URINE NEGATIVE (NEGATIVE); OPIATE SCREEN,URINE NEGATIVE (NEGATIVE)
[2018-04-17 00:23] LABS: PHENCYCLIDINE SCREEN,URINE NEGATIVE (NEGATIVE)
[2018-04-17] MEDS ORDERED: PNEUMOCOCCAL VACCINE POLYVALENT 0.5 ML VIAL [PPSV23] IM ONE (03:00)
[2018-04-17] MEDS ORDERED: PETROLATUM,WHITE 71 GM JELLY TP PRN (07:15)
[2018-04-17] MEDS ORDERED: ONDANSETRON HCL 4 MG TABLET PO PRN (07:15)
[2018-04-17] MEDS ORDERED: GuaiFENesin/D-METHORPHAN [SUGAR-FREE] 200-20MG/10 ML SYRUP UDCUP PO PRN (07:15)
[2018-04-17] MEDS ORDERED: MAG HYDROX/AL HYDROX/SIMETH ES 30 ML SUSPENSION UDCUP PO PRN (07:15)
[2018-04-17] MEDS ORDERED: ACETAMINOPHEN 325 MG TABLET PO PRN (07:15)
[2018-04-17] MEDS ORDERED: MAGNESIUM HYDROXIDE SUSPENSION 30 ML UDCUP PO PRN (07:15)
[2018-04-17] MEDS ORDERED: CloNIDine HCL 0.1 MG TABLET PO PRN (07:15)
[2018-04-17] MEDS ORDERED: NICOTINE 14 MG/24 HOUR PATCH TD PRN (07:15)
[2018-04-17] MEDS ORDERED: LOPERAMIDE HCL 2 MG CAPSULE PO PRN (07:15)
[2018-04-17 10:19] VITALS: BP 105/56
[2018-04-17] MEDS: ALBUTEROL SULFATE HFA 90 MCG/PUFF 8 GM INHALER IH PRN (11:46)
[2018-04-17] MEDS: SERTRALINE HCL 100 MG TABLET PO SCH (11:46)
[2018-04-17] MEDS: TOPIRAMATE 25 MG TABLET PO SCH (16:20)
[2018-04-17 17:20] VITALS: BP 118/62
[2018-04-17] MEDS: PHENYTOIN SODIUM 100 MG ER CAPSULE PO SCH (21:02)
[2018-04-17] MEDS: TraZODone HCL 100 MG TABLET PO SCH (21:02)
[2018-04-17] MEDS: OLANZapine 7.5 MG TABLET PO SCH (21:02)
[2018-04-17] MEDS: DIVALPROEX SODIUM 500 MG ER TABLET PO SCH (21:02)
[2018-04-18] MEDS: ALBUTEROL SULFATE HFA 90 MCG/PUFF 8 GM INHALER IH PRN (05:38)
[2018-04-18 06:06] LABS: BASOPHILS % (AUTO) 0.4 % (0.0-2.0); EOSINOPHILS % (AUTO) 3.8 % (1.0-6.0); HEMATOCRIT 40.5 % (41-53); LYMPHOCYTES # (AUTO) 1.5 K/uL (1.0-4.8); MEAN CORPUSCULAR HEMOGLOBIN 31.8 pg (26.0-34.0); MEAN CORPUSCULAR HGB CONC 34.5 G/dL (31.0-37.0); MEAN CORPUSCULAR VOLUME 92 fL (80-100); MONOCYTES # (AUTO) 0.6 K/uL (0.1-1.0); MONOCYTES % (AUTO) 10.8 % (2.0-9.0); NEUTROPHILS # (AUTO) 3.3 K/uL (1.8-7.7); PLATELET COUNT (AUTO) 210 K/uL (150-450); RED BLOOD CELL COUNT(AUTO) 4.39 MIL/uL (4.50-5.90); RED CELL DISTRIBUTION WIDTH 13.1 % (11.5-14.5)
[2018-04-18 06:38] LABS: ALANINE AMINOTRANSFERASE 20 U/L (12-78); ALBUMIN 3.2 g/dL (3.4-5.0); ALKALINE PHOSPHATASE 76 U/L (46-116); ANION GAP 8 mmol/L (8-16); ASPARTATE AMINOTRANSFERASE 7 U/L (15-37); BILIRUBIN,TOTAL 0.3 mg/dL (0.1-1.0); CALCIUM, TOTAL 8.9 mg/dL (8.8-10.5); CARBON DIOXIDE 26 mmol/L (22-29); CHLORIDE 103 mmol/L (98-107); CHOL/HDL RATIO 4.1 (4.2-7.3); CHOLESTEROL 159 mg/dL (131-200); CREATININE 0.63 mg/dL (0.60-1.30); GLOMERULAR FILTR. RATE CALC > 60 mL/min (>60); GLUCOSE,RANDOM 93 mg/dL (70-110); HDL CHOLESTEROL 39 mg/dL (40-60); LDL CHOL (CALC.) 84 mg/dL (0-130); POTASSIUM 4.2 mmol/L (3.5-5.1); SODIUM SERUM 137 mmol/L (136-145); THYROID STIMULATING HORMONE 0.67 uIU/mL (0.36-3.74); TOTAL PROTEIN, SERUM 6.1 g/dL (6.4-8.2); TRIGLYCERIDES 180 mg/dL (15-150); UREA NITROGEN, BLOOD 19 mg/dL (7-18)
[2018-04-18 07:10] LABS: HEMOGLOBIN A1C 5.2 % (4.5-6.2)
[2018-04-18] MEDS: FUROSEMIDE 40 MG TABLET PO SCH (09:42)
[2018-04-18] MEDS: PRAVASTATIN SODIUM 40 MG TABLET PO SCH (09:42)
[2018-04-18] MEDS: TAMSULOSIN HCL 0.4 MG CAPSULE PO SCH (09:42)
[2018-04-18] MEDS: TOPIRAMATE 25 MG TABLET PO SCH ×2 (09:42→17:43)
[2018-04-18] MEDS: SERTRALINE HCL 100 MG TABLET PO SCH (09:43)
[2018-04-18 10:16] VITALS: BP 108/63
[2018-04-18] MEDS: FLUTICASONE/VILANTEROL 100-25 MCG/INH INHALER [14] IH SCH (14:01)
[2018-04-18 17:00] VITALS: BP 110/65
[2018-04-18] MEDS: OLANZapine 7.5 MG TABLET PO SCH (20:39)
[2018-04-18] MEDS: TraZODone HCL 100 MG TABLET PO SCH (20:39)
[2018-04-18] MEDS: DIVALPROEX SODIUM 500 MG ER TABLET PO SCH (20:39)
[2018-04-18] MEDS: PHENYTOIN SODIUM 100 MG ER CAPSULE PO SCH (20:39)
[2018-04-19] MEDS: FLUTICASONE/VILANTEROL 100-25 MCG/INH INHALER [14] IH SCH (10:14)
[2018-04-19] MEDS: SERTRALINE HCL 100 MG TABLET PO SCH (10:14)
[2018-04-19] MEDS: TAMSULOSIN HCL 0.4 MG CAPSULE PO SCH (10:14)
[2018-04-19] MEDS: FUROSEMIDE 40 MG TABLET PO SCH (10:15)
[2018-04-19] MEDS: TOPIRAMATE 25 MG TABLET PO SCH ×2 (10:15→17:09)
[2018-04-19] MEDS: PRAVASTATIN SODIUM 40 MG TABLET PO SCH (10:15)
[2018-04-19 10:31] VITALS: BP 115/76
[2018-04-19 18:18] VITALS: BP 116/66
[2018-04-19] MEDS: PHENYTOIN SODIUM 100 MG ER CAPSULE PO SCH (21:11)
[2018-04-19] MEDS: OLANZapine 7.5 MG TABLET PO SCH (21:11)
[2018-04-19] MEDS: DIVALPROEX SODIUM 500 MG ER TABLET PO SCH (21:11)
[2018-04-19] MEDS: TraZODone HCL 100 MG TABLET PO SCH (21:11)
[2018-04-20] MEDS: FUROSEMIDE 40 MG TABLET PO SCH (08:50)
[2018-04-20] MEDS: TAMSULOSIN HCL 0.4 MG CAPSULE PO SCH (08:50)
[2018-04-20] MEDS: PRAVASTATIN SODIUM 40 MG TABLET PO SCH (08:50)
[2018-04-20] MEDS: SERTRALINE HCL 100 MG TABLET PO SCH (08:51)
[2018-04-20] MEDS: TOPIRAMATE 25 MG TABLET PO SCH ×2 (08:51→16:28)
[2018-04-20] MEDS: DOCUSATE SODIUM 100 MG CAPSULE PO PRN (08:52)
[2018-04-20] MEDS: FLUTICASONE/VILANTEROL 100-25 MCG/INH INHALER [14] IH SCH (08:52)
[2018-04-20 09:00] VITALS: BP 116/79
[2018-04-20] MEDS: IBUPROFEN 400 MG TABLET PO PRN ×2 (09:28→19:43)
[2018-04-20 16:29] VITALS: BP 112/75
[2018-04-20 19:43] VITALS: BP 117/78
[2018-04-20] MEDS: TraZODone HCL 100 MG TABLET PO SCH (20:04)
[2018-04-20] MEDS: OLANZapine 7.5 MG TABLET PO SCH (20:04)
[2018-04-20] MEDS: PHENYTOIN SODIUM 100 MG ER CAPSULE PO SCH (20:04)
[2018-04-20] MEDS: DIVALPROEX SODIUM 500 MG ER TABLET PO SCH (20:04)
[2018-04-21] MEDS: DOCUSATE SODIUM 100 MG CAPSULE PO PRN (08:59)
[2018-04-21 09:00] VITALS: BP 130/74
[2018-04-21] MEDS: PRAVASTATIN SODIUM 40 MG TABLET PO SCH (09:01)
[2018-04-21] MEDS: FUROSEMIDE 40 MG TABLET PO SCH (09:01)
[2018-04-21] MEDS: SERTRALINE HCL 100 MG TABLET PO SCH (09:02)
[2018-04-21] MEDS: TAMSULOSIN HCL 0.4 MG CAPSULE PO SCH (09:02)
[2018-04-21] MEDS: TOPIRAMATE 25 MG TABLET PO SCH ×2 (09:03→17:15)
[2018-04-21] MEDS: IBUPROFEN 400 MG TABLET PO PRN (09:04)
[2018-04-21] MEDS: FLUTICASONE/VILANTEROL 100-25 MCG/INH INHALER [14] IH SCH (09:05)
[2018-04-21 16:45] VITALS: BP 127/79
[2018-04-21] MEDS: OLANZapine 7.5 MG TABLET PO SCH (21:42)
[2018-04-21] MEDS: DIVALPROEX SODIUM 500 MG ER TABLET PO SCH (21:42)
[2018-04-21] MEDS: PHENYTOIN SODIUM 100 MG ER CAPSULE PO SCH (21:42)
[2018-04-21] MEDS: TraZODone HCL 100 MG TABLET PO SCH (21:42)
[2018-04-22 09:15] VITALS: BP 124/75
[2018-04-22] MEDS: TAMSULOSIN HCL 0.4 MG CAPSULE PO SCH (09:16)
[2018-04-22] MEDS: SERTRALINE HCL 100 MG TABLET PO SCH (09:17)
[2018-04-22] MEDS: PRAVASTATIN SODIUM 40 MG TABLET PO SCH (09:18)
[2018-04-22] MEDS: TOPIRAMATE 25 MG TABLET PO SCH ×2 (09:18→16:54)
[2018-04-22] MEDS: FUROSEMIDE 40 MG TABLET PO SCH (09:18)
[2018-04-22] MEDS: FLUTICASONE/VILANTEROL 100-25 MCG/INH INHALER [14] IH SCH (09:19)
[2018-04-22] MEDS: IBUPROFEN 400 MG TABLET PO PRN (09:23)
[2018-04-22 16:18] VITALS: BP 123/82
[2018-04-22] MEDS: DIVALPROEX SODIUM 500 MG ER TABLET PO SCH (21:50)
[2018-04-22] MEDS: PHENYTOIN SODIUM 100 MG ER CAPSULE PO SCH (21:50)
[2018-04-22] MEDS: TraZODone HCL 100 MG TABLET PO SCH (21:51)
[2018-04-22] MEDS: OLANZapine 7.5 MG TABLET PO SCH (21:51)
[2018-04-23 08:02] VITALS: BP 109/65
[2018-04-23] MEDS: TOPIRAMATE 25 MG TABLET PO SCH ×2 (10:33→16:11)
[2018-04-23] MEDS: TAMSULOSIN HCL 0.4 MG CAPSULE PO SCH (10:33)
[2018-04-23] MEDS: PRAVASTATIN SODIUM 40 MG TABLET PO SCH (10:33)
[2018-04-23] MEDS: FUROSEMIDE 40 MG TABLET PO SCH (10:33)
[2018-04-23] MEDS: SERTRALINE HCL 100 MG TABLET PO SCH (10:33)
[2018-04-23] MEDS: FLUTICASONE/VILANTEROL 100-25 MCG/INH INHALER [14] IH SCH (10:35)
[2018-04-23 16:00] VITALS: BP 114/72
[2018-04-23] MEDS: PHENYTOIN SODIUM 100 MG ER CAPSULE PO SCH (20:18)
[2018-04-23] MEDS: TraZODone HCL 100 MG TABLET PO SCH (20:19)
[2018-04-23] MEDS: DIVALPROEX SODIUM 500 MG ER TABLET PO SCH (20:19)
[2018-04-23] MEDS: OLANZapine 7.5 MG TABLET PO SCH (20:19)
[2018-04-24] MEDS ORDERED: SERT100T12 PO (08:50)
[2018-04-24] MEDS ORDERED: OLAN7.5T9 PO (08:50)
[2018-04-24] MEDS ORDERED: DIVA500T52 PO (08:50)
[2018-04-24] MEDS ORDERED: TRAZ-220 PO (08:50)
[2018-04-24] MEDS: FLUTICASONE/VILANTEROL 100-25 MCG/INH INHALER [14] IH SCH (09:18)
[2018-04-24] MEDS: PRAVASTATIN SODIUM 40 MG TABLET PO SCH (09:18)
[2018-04-24] MEDS: FUROSEMIDE 40 MG TABLET PO SCH (09:19)
[2018-04-24] MEDS: SERTRALINE HCL 100 MG TABLET PO SCH (09:19)
[2018-04-24] MEDS ORDERED: FLUT1AER IH (09:19)
[2018-04-24] MEDS: TAMSULOSIN HCL 0.4 MG CAPSULE PO SCH (09:19)
[2018-04-24] MEDS: TOPIRAMATE 25 MG TABLET PO SCH (09:19)
[2018-04-24 12:01] VITALS: BP 138/73
== END 2018-04-24 12:12 | disposition home or self-care (01) | DRG 750 ==
LOC: EMS 18:08 → 3EI 23:30
DX: F25.1 Schizoaffective disorder, depressive type (principal); I11.0 Hypertensive heart disease with heart failure; I50.9 Heart failure, unspecified; R45.851 Suicidal ideations; G40.909 Epilepsy, unspecified, not intractable, without status epilepticus; E78.00 Pure hypercholesterolemia, unspecified; E78.5 Hyperlipidemia, unspecified; F31.9 Bipolar disorder, unspecified; J44.9 Chronic obstructive pulmonary disease, unspecified; K21.9 Gastro-esophageal reflux disease without esophagitis; N40.0 Benign prostatic hyperplasia without lower urinary tract symptoms; Z88.0 Allergy status to penicillin; Z88.8 Allergy status to other drugs, medicaments and biological substances; Z79.899 Other long term (current) drug therapy; Z91.5 Personal history of self-harm; Z98.2 Presence of cerebrospinal fluid drainage device
CPT/HCPCS: 83036; 84439; 84443; G0480; J3535

== ENCOUNTER 2019-06-22 11:28 | Emergency (ER) | payer MEDICAID ==
[~2019-06-22] VITALS: Ht 172.7 cm; Wt 82.0 kg
[~2019-06-22 11:28] MED LIST changes: +FLUT1AER IH; -MOME13HF2 IH; -OLAN7.5T2 PO; +OLAN7.5T9 PO; +TAMS-13 PO; -TAMS0.4C32 PO; -TRAZ-220 PO; +TRAZ-257 PO
[2019-06-22 12:10] LABS: BASOPHILS % (AUTO) 0.3 % (0.0-2.0); EOSINOPHILS % (AUTO) 2.5 % (1.0-6.0); HEMATOCRIT 44.3 % (41-53); HEMOGLOBIN 15.1 g/dL (13.5-17.5); LYMPHOCYTES # (AUTO) 1.5 K/uL (1.0-4.8); LYMPHOCYTES % (AUTO) 18.7 % (22.0-44.0); MEAN CORPUSCULAR HEMOGLOBIN 32.3 pg (26.0-34.0); MEAN CORPUSCULAR HGB CONC 34.1 G/dL (31.0-37.0); MEAN CORPUSCULAR VOLUME 95 fL (80-100); MONOCYTES # (AUTO) 0.6 K/uL (0.1-1.0); MONOCYTES % (AUTO) 7.5 % (2.0-9.0); NEUTROPHILS # (AUTO) 5.7 K/uL (1.8-7.7); PLATELET COUNT (AUTO) 246 K/uL (150-450); RED BLOOD CELL COUNT(AUTO) 4.68 MIL/uL (4.50-5.90); RED CELL DISTRIBUTION WIDTH 13.8 % (11.5-14.5)
[2019-06-22 12:19] LABS: ANION GAP 9 mmol/L (8-16); CALCIUM, TOTAL 8.5 mg/dL (8.8-10.5); CARBON DIOXIDE 29 mmol/L (22-29); CHLORIDE 103 mmol/L (98-107); CREATININE 0.68 mg/dL (0.60-1.30); GLOMERULAR FILTR. RATE CALC > 60 mL/min (>60); GLUCOSE,RANDOM 85 mg/dL (70-110); POTASSIUM 3.6 mmol/L (3.5-5.1); SODIUM SERUM 141 mmol/L (136-145); UREA NITROGEN, BLOOD 17 mg/dL (7-18)
[2019-06-22 12:26] LABS: ALANINE AMINOTRANSFERASE 28 U/L (12-78); ALBUMIN 3.8 g/dL (3.4-5.0); ALKALINE PHOSPHATASE 87 U/L (46-116); ASPARTATE AMINOTRANSFERASE 12 U/L (15-37); BILIRUBIN,TOTAL 0.2 mg/dL (0.1-1.0); TOTAL PROTEIN, SERUM 7.1 g/dL (6.4-8.2)
[2019-06-22 13:58] LABS: VALPROIC ACID 36 mcg/mL (50-100)
[2019-06-22 14:25] LABS: APPEARANCE,URINE CLEAR (CLEAR); BILIRUBIN,URINE NEGATIVE (NEGATIVE); GLUCOSE, URINE (UA) NEGATIVE (NEGATIVE); KETONES,URINE NEGATIVE (NEGATIVE); LEUKOCYTE ESTERASE ,URINE NEGATIVE (NEGATIVE); NITRATE,URINE NEGATIVE (NEGATIVE); OCCULT BLOOD,URINE NEGATIVE (NEGATIVE); PROTEIN,URINE NEGATIVE (NEGATIVE)
[2019-06-22 14:34] LABS: AMPHET/METH SCREEN,URINE NEGATIVE (NEGATIVE); BARBITURATE SCREEN, URINE NEGATIVE (NEGATIVE); BENZODIAZEPINES SCREEN,URINE NEGATIVE (NEGATIVE); CANNABINOID SCREEN,URINE NEGATIVE (NEGATIVE); COCAINE SCREEN,URINE NEGATIVE (NEGATIVE); METHADONE SCREEN, URINE NEGATIVE (NEGATIVE); OPIATE SCREEN,URINE NEGATIVE (NEGATIVE)
[2019-06-22 14:37] LABS: PHENCYCLIDINE SCREEN,URINE NEGATIVE (NEGATIVE)
[2019-06-22] MEDS ORDERED: VALPROIC ACID 250 MG CAPSULE PO ONE (15:15)
[2019-06-22] MEDS ORDERED: HALOPERIDOL 5 MG TABLET PO PRN (17:30)
[2019-06-22] MEDS ORDERED: ZOLPIDEM TARTRATE 10 MG TABLET PO PRN (17:30)
[2019-06-22] MEDS ORDERED: LORazepam 2 MG TABLET PO PRN (17:30)
[2019-06-22] MEDS ORDERED: PHENYTOIN SODIUM 100 MG ER CAPSULE PO ONE (23:30)
[2019-06-23] MEDS ORDERED: ALBUTEROL SULFATE HFA 90 MCG/PUFF 8 GM INHALER IH ONE (06:30)
[2019-06-23 07:11] LABS: CHOL/HDL RATIO 2.7 (4.2-7.3); FREE T4 (FREE THYROXINE) 0.56 ng/dL (0.76-1.46); THYROID STIMULATING HORMONE 1.4 uIU/mL (0.36-3.74)
[2019-06-23] MEDS ORDERED: ALBUTEROL SULFATE HFA 90 MCG/PUFF 8 GM INHALER IH PRN (09:00)
[2019-06-23] MEDS ORDERED: FLUTICASONE/VILANTEROL 200-25 MCG/INH INHALER [14] IH SCH (09:00)
[2019-06-23 09:01] VITALS: BP 122/71
== END 2019-06-23 10:20 | disposition other institution (70) ==
LOC: EMS 11:31
DX: F25.9 Schizoaffective disorder, unspecified (principal); F31.9 Bipolar disorder, unspecified; J44.9 Chronic obstructive pulmonary disease, unspecified; I50.9 Heart failure, unspecified; E78.00 Pure hypercholesterolemia, unspecified; F19.90 Other psychoactive substance use, unspecified, uncomplicated; Z88.0 Allergy status to penicillin; Z79.899 Other long term (current) drug therapy
CPT/HCPCS: 36415; 71045; 80053; 80061; 80164; 80185; 80307; 81003; 84439; 84443; 85025; 94640; 99285; G0480; J3535

== ENCOUNTER 2019-08-22 19:24 | Inpatient (IN) | payer MEDICAID ==
[~2019-08-22] VITALS: Ht 175.3 cm; Wt 68.9 kg
[~2019-08-22 19:24] MED LIST changes: +DIVA-80 PO; -DIVA500T52 PO
[2019-08-22 21:33] LABS: BASOPHILS % (AUTO) 0.4 % (0.0-2.0); EOSINOPHILS % (AUTO) 3.1 % (1.0-6.0); HEMATOCRIT 42.5 % (41-53); HEMOGLOBIN 14.1 g/dL (13.5-17.5); LYMPHOCYTES # (AUTO) 2.2 K/uL (1.0-4.8); LYMPHOCYTES % (AUTO) 30.9 % (22.0-44.0); MEAN CORPUSCULAR HEMOGLOBIN 31.5 pg (26.0-34.0); MEAN CORPUSCULAR HGB CONC 33.1 G/dL (31.0-37.0); MEAN CORPUSCULAR VOLUME 95 fL (80-100); MONOCYTES # (AUTO) 0.6 K/uL (0.1-1.0); NEUTROPHILS % (AUTO) 57.6 % (40.0-70.0); PLATELET COUNT (AUTO) 314 K/uL (150-450); RED BLOOD CELL COUNT(AUTO) 4.46 MIL/uL (4.50-5.90); RED CELL DISTRIBUTION WIDTH 13.9 % (11.5-14.5)
[2019-08-22 21:38] LABS: ANION GAP 10 mmol/L (8-16); CALCIUM, TOTAL 8.7 mg/dL (8.8-10.5); CARBON DIOXIDE 25 mmol/L (22-29); CHLORIDE 105 mmol/L (98-107); CREATININE 0.67 mg/dL (0.60-1.30); GLOMERULAR FILTR. RATE CALC > 60 mL/min (>60); GLUCOSE,RANDOM 120 mg/dL (70-110); POTASSIUM 3.6 mmol/L (3.5-5.1); SODIUM SERUM 140 mmol/L (136-145); UREA NITROGEN, BLOOD 19 mg/dL (7-18)
[2019-08-22 21:44] LABS: ALBUMIN 3.5 g/dL (3.4-5.0); BILIRUBIN,TOTAL 0.1 mg/dL (0.1-1.0)
[2019-08-22 22:10] LABS: ALANINE AMINOTRANSFERASE 24 U/L (12-78); ALKALINE PHOSPHATASE 79 U/L (46-116); ASPARTATE AMINOTRANSFERASE 11 U/L (15-37); TOTAL PROTEIN, SERUM 7.1 g/dL (6.4-8.2); VALPROIC ACID 46 mcg/mL (50-100)
[2019-08-22 22:29] LABS: AMPHET/METH SCREEN,URINE NEGATIVE (NEGATIVE); BARBITURATE SCREEN, URINE NEGATIVE (NEGATIVE); BENZODIAZEPINES SCREEN,URINE NEGATIVE (NEGATIVE); CANNABINOID SCREEN,URINE NEGATIVE (NEGATIVE); COCAINE SCREEN,URINE NEGATIVE (NEGATIVE); METHADONE SCREEN, URINE NEGATIVE (NEGATIVE); OPIATE SCREEN,URINE NEGATIVE (NEGATIVE)
[2019-08-22 22:32] LABS: PHENCYCLIDINE SCREEN,URINE NEGATIVE (NEGATIVE)
[2019-08-23] MEDS ORDERED: LORazepam 2 MG TABLET PO PRN (02:15)
[2019-08-23] MEDS ORDERED: HALOPERIDOL 5 MG TABLET PO PRN (02:15)
[2019-08-23] MEDS ORDERED: ZOLPIDEM TARTRATE 10 MG TABLET PO PRN (02:15)
[2019-08-23 03:30] VITALS: BP 119/83
[2019-08-23] MEDS ORDERED: CloNIDine HCL 0.1 MG TABLET PO PRN (08:15)
[2019-08-23] MEDS ORDERED: PETROLATUM,WHITE 28 GM JELLY TP PRN (08:15)
[2019-08-23] MEDS ORDERED: MAGNESIUM HYDROXIDE SUSPENSION 30 ML UDCUP PO PRN (08:15)
[2019-08-23] MEDS ORDERED: LOPERAMIDE HCL 2 MG CAPSULE PO PRN (08:15)
[2019-08-23] MEDS ORDERED: MAG HYDROX/AL HYDROX/SIMETH ES 30 ML SUSPENSION UDCUP PO PRN (08:15)
[2019-08-23] MEDS ORDERED: NICOTINE 14 MG/24 HOUR PATCH TD PRN (08:15)
[2019-08-23] MEDS ORDERED: DOCUSATE SODIUM 100 MG CAPSULE PO PRN (08:15)
[2019-08-23] MEDS ORDERED: ONDANSETRON HCL 4 MG TABLET PO PRN (08:15)
[2019-08-23] MEDS ORDERED: IBUPROFEN 400 MG TABLET PO PRN (08:15)
[2019-08-23] MEDS ORDERED: ACETAMINOPHEN 325 MG TABLET PO PRN (08:15)
[2019-08-23] MEDS ORDERED: GuaiFENesin/D-METHORPHAN [SUGAR-FREE] 200-20MG/10 ML SYRUP UDCUP PO PRN (08:15)
[2019-08-23 09:27] VITALS: BP 99/57
[2019-08-23] MEDS: FLUTICASONE/VILANTEROL 100-25 MCG/INH INHALER [14] IH SCH (10:39)
[2019-08-23] MEDS: FUROSEMIDE 40 MG TABLET PO SCH (10:40)
[2019-08-23] MEDS: TAMSULOSIN HCL 0.4 MG CAPSULE PO SCH (10:40)
[2019-08-23] MEDS: PRAVASTATIN SODIUM 40 MG TABLET PO SCH (10:40)
[2019-08-23] MEDS: SERTRALINE HCL 100 MG TABLET PO SCH (14:50)
[2019-08-23 16:00] VITALS: BP 103/52
[2019-08-23] MEDS: PHENYTOIN SODIUM 100 MG ER CAPSULE PO SCH (20:39)
[2019-08-23] MEDS: OLANZapine 7.5 MG TABLET PO SCH (20:39)
[2019-08-23] MEDS: TraZODone HCL 100 MG TABLET PO SCH (20:39)
[2019-08-24 07:17] LABS: CHOL/HDL RATIO 3.2 (4.2-7.3)
[2019-08-24 08:59] VITALS: BP 97/69
[2019-08-24] MEDS: SERTRALINE HCL 100 MG TABLET PO SCH (10:00)
[2019-08-24] MEDS: PRAVASTATIN SODIUM 40 MG TABLET PO SCH (10:00)
[2019-08-24] MEDS: TAMSULOSIN HCL 0.4 MG CAPSULE PO SCH (10:01)
[2019-08-24] MEDS: ALBUTEROL SULFATE HFA 90 MCG/PUFF 8 GM INHALER IH PRN (10:01)
[2019-08-24] MEDS: FLUTICASONE/VILANTEROL 100-25 MCG/INH INHALER [14] IH SCH (10:01)
[2019-08-24] MEDS: FUROSEMIDE 40 MG TABLET PO SCH (10:01)
[2019-08-24 16:00] VITALS: BP 108/60
[2019-08-24] MEDS: OLANZapine 7.5 MG TABLET PO SCH (20:19)
[2019-08-24] MEDS: TraZODone HCL 100 MG TABLET PO SCH (20:19)
[2019-08-24] MEDS: PHENYTOIN SODIUM 100 MG ER CAPSULE PO SCH (20:19)
[2019-08-25 08:00] VITALS: BP 106/68
[2019-08-25] MEDS: FLUTICASONE/VILANTEROL 100-25 MCG/INH INHALER [14] IH SCH (09:00)
[2019-08-25] MEDS: FUROSEMIDE 40 MG TABLET PO SCH (09:01)
[2019-08-25] MEDS: PRAVASTATIN SODIUM 40 MG TABLET PO SCH (09:01)
[2019-08-25] MEDS: ALBUTEROL SULFATE HFA 90 MCG/PUFF 8 GM INHALER IH PRN ×2 (09:01→21:39)
[2019-08-25] MEDS: TAMSULOSIN HCL 0.4 MG CAPSULE PO SCH (09:01)
[2019-08-25] MEDS: SERTRALINE HCL 100 MG TABLET PO SCH (09:02)
[2019-08-25 18:00] VITALS: BP 114/65
[2019-08-25] MEDS: OLANZapine 7.5 MG TABLET PO SCH (21:09)
[2019-08-25] MEDS: TraZODone HCL 100 MG TABLET PO SCH (21:09)
[2019-08-25] MEDS: PHENYTOIN SODIUM 100 MG ER CAPSULE PO SCH (21:09)
[2019-08-26 08:00] VITALS: BP 100/48
[2019-08-26] MEDS: SERTRALINE HCL 100 MG TABLET PO SCH (09:15)
[2019-08-26] MEDS: PRAVASTATIN SODIUM 40 MG TABLET PO SCH (09:16)
[2019-08-26] MEDS: FLUTICASONE/VILANTEROL 100-25 MCG/INH INHALER [14] IH SCH (09:16)
[2019-08-26] MEDS: TAMSULOSIN HCL 0.4 MG CAPSULE PO SCH (09:16)
[2019-08-26] MEDS: FUROSEMIDE 40 MG TABLET PO SCH (09:16)
[2019-08-26] MEDS: ALBUTEROL SULFATE HFA 90 MCG/PUFF 8 GM INHALER IH PRN (09:16)
[2019-08-26] MEDS: NYSTATIN 15 GM POWDER BOTTLE TP SCH ×2 (09:17→17:01)
[2019-08-26 16:00] VITALS: BP 105/60
[2019-08-26] MEDS: TraZODone HCL 100 MG TABLET PO SCH (20:40)
[2019-08-26] MEDS: PHENYTOIN SODIUM 100 MG ER CAPSULE PO SCH (20:40)
[2019-08-26] MEDS: OLANZapine 7.5 MG TABLET PO SCH (20:40)
[2019-08-27 08:00] VITALS: BP 109/55
[2019-08-27] MEDS: PRAVASTATIN SODIUM 40 MG TABLET PO SCH (09:09)
[2019-08-27] MEDS: FUROSEMIDE 40 MG TABLET PO SCH (09:09)
[2019-08-27] MEDS: TAMSULOSIN HCL 0.4 MG CAPSULE PO SCH (09:09)
[2019-08-27] MEDS: NYSTATIN 15 GM POWDER BOTTLE TP SCH (09:10)
[2019-08-27] MEDS: SERTRALINE HCL 100 MG TABLET PO SCH (09:10)
[2019-08-27] MEDS: FLUTICASONE/VILANTEROL 100-25 MCG/INH INHALER [14] IH SCH (09:11)
[2019-08-27] MEDS: ALBUTEROL SULFATE HFA 90 MCG/PUFF 8 GM INHALER IH PRN (09:17)
[2019-08-27] MEDS ORDERED: SERT100T12 PO (11:41)
[2019-08-27] MEDS ORDERED: OLAN7.5T9 PO (11:41)
[2019-08-27] MEDS ORDERED: TRAZ-257 PO (11:41)
[2019-08-27] MEDS ORDERED: NYST30OI6 TP (13:41)
== END 2019-08-27 14:20 | disposition home or self-care (01) | DRG 885 ==
LOC: EMS 19:26 → 3EI 08-23 02:00
DX: F33.2 Major depressive disorder, recurrent severe without psychotic features (principal); R45.851 Suicidal ideations; F25.1 Schizoaffective disorder, depressive type; I50.9 Heart failure, unspecified; G40.909 Epilepsy, unspecified, not intractable, without status epilepticus; Z88.0 Allergy status to penicillin; Z88.6 Allergy status to analgesic agent; J44.9 Chronic obstructive pulmonary disease, unspecified; N40.0 Benign prostatic hyperplasia without lower urinary tract symptoms; E78.5 Hyperlipidemia, unspecified; I67.1 Cerebral aneurysm, nonruptured; E78.00 Pure hypercholesterolemia, unspecified; F19.10 Other psychoactive substance abuse, uncomplicated; F41.9 Anxiety disorder, unspecified
CPT/HCPCS: 85379; 93005; G0480; J3535; 36415-L1; 36415-TC; 71045-TC; 80061-TC

== ENCOUNTER 2019-10-05 21:40 | Emergency (ER) | payer MEDICAID ==
[~2019-10-05] VITALS: Ht 175.3 cm; Wt 72.7 kg
[~2019-10-05 21:40] MED LIST changes: -DIVA-80 PO; +NYST30OI6 TP; -TOPI25 PO
[2019-10-05 23:01] LABS: BASOPHILS % (AUTO) 0.3 % (0.0-2.0); EOSINOPHILS % (AUTO) 3.5 % (1.0-6.0); HEMATOCRIT 43.9 % (41-53); HEMOGLOBIN 14.4 g/dL (13.5-17.5); LYMPHOCYTES # (AUTO) 2.4 K/uL (1.0-4.8); LYMPHOCYTES % (AUTO) 24.6 % (22.0-44.0); MEAN CORPUSCULAR HEMOGLOBIN 30.9 pg (26.0-34.0); MEAN CORPUSCULAR HGB CONC 32.9 G/dL (31.0-37.0); MEAN CORPUSCULAR VOLUME 94 fL (80-100); MONOCYTES # (AUTO) 0.7 K/uL (0.1-1.0); MONOCYTES % (AUTO) 6.6 % (2.0-9.0); NEUTROPHILS # (AUTO) 6.4 K/uL (1.8-7.7); PLATELET COUNT (AUTO) 297 K/uL (150-450); RED BLOOD CELL COUNT(AUTO) 4.67 MIL/uL (4.50-5.90)
[2019-10-05 23:10] LABS: ANION GAP 8 mmol/L (8-16); CALCIUM, TOTAL 8.9 mg/dL (8.8-10.5); CARBON DIOXIDE 29 mmol/L (22-29); CHLORIDE 100 mmol/L (98-107); CREATININE 0.86 mg/dL (0.60-1.30); GLOMERULAR FILTR. RATE CALC > 60 mL/min (>60); GLUCOSE,RANDOM 97 mg/dL (70-110); POTASSIUM 3.6 mmol/L (3.5-5.1); SODIUM SERUM 137 mmol/L (136-145); UREA NITROGEN, BLOOD 15 mg/dL (7-18)
[2019-10-05 23:16] LABS: ALANINE AMINOTRANSFERASE 26 U/L (12-78); ALBUMIN 3.8 g/dL (3.4-5.0); ALKALINE PHOSPHATASE 74 U/L (46-116); ASPARTATE AMINOTRANSFERASE 11 U/L (15-37); BILIRUBIN,TOTAL 0.3 mg/dL (0.1-1.0); CREATINE KINASE, TOTAL ONLY 71 U/L (39-308); TOTAL PROTEIN, SERUM 7.1 g/dL (6.4-8.2)
[2019-10-05 23:20] LABS: B-TYPE NATRIURETIC PEPTIDE 7 pg/mL (0-100)
[2019-10-06 03:00] VITALS: BP 120/76
== END 2019-10-06 04:00 | disposition home or self-care (01) ==
LOC: EMS 21:45
DX: F32.9 Major depressive disorder, single episode, unspecified (principal)
CPT/HCPCS: 36415; 71045; 80053; 82550; 83880; 84484; 85025; 93005; 99285; G0480